=== PATIENT | male | born 1975 | race Caucasian/White ===

== ENCOUNTER 2022-03-23 08:01 | Emergency (ER) | payer SELFPAY | END 2022-03-23 11:43 | disposition home or self-care (01) | LOC: ER1 08:01 | DX: S90.01XA Contusion of right ankle, initial encounter (principal); S80.811A Abrasion, right lower leg, initial encounter; Z88.0 Allergy status to penicillin; W20.8XXA Other cause of strike by thrown, projected or falling object, initial encounter | CPT/HCPCS: 73590; 73610; 90471; 90715; 99283 ==